=== PATIENT | female | born 1995 | race Caucasian/White ===

== ENCOUNTER 2017-08-29 09:59 | Emergency (ER) | payer BC ==
[2017-08-29 11:40] VITALS: BP 118/65
--- NOTE | 2017-08-29 11:46 | UC ---
Lower Extremity/Ankle HPI - HPI Summary HPI Summary: Playing soccer Friday08/23/17 injured top of left foot, possibly someone stepped on it, but no significant pain. Friday08/25/17 played soccer again and experienced increase in pain with walking and pressure. Has been using crutches since friday dt pain. Has not tried anything OTC - History of Current Complaint Chief Complaint: UCLowerExtremity Stated Complaint: FOOT INJURY Time Seen by Provider: 08/29/17 11:45 Hx Obtained From: Patient Hx Last Menstrual Period: 07/29/17 ?: No Onset/Duration: Sudden Onset Severity Initially: Mild Severity Currently: Moderate Pain Intensity: 6 Pain Scale Used: 0-10 Numeric Aggravating Factor(s): Standing, Ambulation Alleviating Factor(s): Rest, Ice Able to Bear Weight: Yes - Allergies/Home Medications Allergies/Adverse Reactions: Allergies Allergy/AdvReac Type Severity Reaction Status Date / Time No Known Allergies Allergy Verified 08/29/17 11:34 Home Medications: Home Medications NK [No Home Medications Reported] 08/29/17 [History Confirmed 08/29/17] PMH/Surg Hx/FS Hx/Imm Hx Previously Healthy: Yes - Surgical History Surgical History: None - Social History Occupation: Student Lives: Dormitory/Roommates Alcohol Use: None Substance Use Type: None Smoking Status (MU): Never Smoked Tobacco Review of Systems Constitutional: Negative Respiratory: Negative Cardiovascular: Negative Neurovascular: Negative Musculoskeletal: Edema - Left midfoot, Other: - Pain left midfoot Neurological: Negative Psychological: Negative Is Patient Immunocompromised?: No All Other Systems Reviewed And Are Negative: Yes Physical Exam Triage Information Reviewed: Yes Appearance: Pain Distress Vital Signs: Initial Vital Signs Temp 97.7 F 08/29/17 11:34 Pulse 58 08/29/17 11:34 Resp 18 08/29/17 11:34 BP 118/65 08/29/17 11:34 Pulse Ox 100 08/29/17 11:34 Vital Signs Reviewed: Yes Respiratory Exam: Normal Respiratory: Positive: Chest non-tender, Lungs clear, Normal breath sounds Cardiovascular Exam: Normal Cardiovascular: Positive: RRR, No Murmur, Pulses Normal - Dorsalis pedis intact b/l Musculoskeletal: Positive: Strength Intact - Left ankle and foot, ROM Intact - At left ankle, Edema @ - Left midfoot, Other: - Good ROM in all toes. TTP over 3rd-4th metatarsal. Neurological: Positive: Alert Psychological: Positive: Age Appropriate Behavior Diagnostics - Laboratory Diagnostic Studies Completed/Ordered: XR left foot negative Lower Extremity Course/Dx - Course Course Of Treatment: Pt has been using crutches to alleviate pain, but foot is not improving. XR today is negative. Pt would like to try a CAM boot for pain relief. Ibuprofen prn. F/u ortho at next available if no change. - Differential Dx/Diagnosis Differential Diagnosis/HQI/PQRI: Contusion, Fracture (Closed), Sprain, Strain Provider Diagnoses: Left foot contusion Discharge - Discharge Plan Condition: Stable Disposition: HOME Patient Education Materials: Foot Contusion (ED) Referrals: No Primary Care Phys,NOPCP [Primary Care Provider] - Sports Medicine [facility] [Provider Group] - If Needed Additional Instructions: Rest, ice, and elevate your foot when possible. Use CAM boot when able and walk as tolerated. Ibuprofen OTC if needed for pain. Please schedule a follow up with orthopedics if your symptoms persist. If you develop fever, chills, new, or worsening symptoms - please call our office or go to ED.
--- NOTE | 2017-08-29 12:13 | RAD ---
HISTORY: Left foot pain and injury COMPARISONS: None VIEWS: 3, Frontal, lateral, and oblique views of the left foot FINDINGS: BONE DENSITY: Normal. BONES: There is no displaced fracture. JOINTS: There is no arthropathy. ALIGNMENT: There is no dislocation. SOFT TISSUES: Unremarkable. OTHER FINDINGS: None. IMPRESSION: NO ACUTE OSSEOUS INJURY. IF SYMPTOMS PERSIST, RECOMMEND REPEAT IMAGING.
== END 2017-08-29 12:47 | disposition home or self-care (01) ==
LOC: UCEAST 09:59
DX: S90.32XA Contusion of left foot, initial encounter (principal); X58.XXXA Exposure to other specified factors, initial encounter; Y93.9 Activity, unspecified; Y92.9 Unspecified place or not applicable; Y99.9 Unspecified external cause status
CPT/HCPCS: 99212; G0463